=== PATIENT | female | born 1945 | race American Indian/Alaskan Native ===

== ENCOUNTER 2017-06-28 13:27 | Emergency (ER) | payer MEDICARE, OTHER ==
[2017-06-28 13:34] VITALS: O2SAT 96
[2017-06-28] MEDS ORDERED: Dexamethasone 10 MG in Sodium Chloride 0.9% 50 ML IVPB STA (14:26)
[2017-06-28] MEDS ORDERED: Clindamycin 600mg/50ml NS 600 MG/50 ML BAG IVPB ONE (14:26)
[2017-06-28] MEDS ORDERED: Sodium Chloride 0.9% 1,000 ML IV STA (14:26)
--- NOTE | 2017-06-28 14:36 | ED PDOC ---
HPI: CCC, URI, Sore Throat Time Seen by Provider: 06/28/17 14:17 Chief Complaint (Nursing): ENT Problem Chief Complaint (Provider): Sore throat History Per: Patient History/Exam Limitations: no limitations Onset/Duration Of Symptoms: Days (x3) Current Symptoms Are (Timing): Still Present Location Of Pain: Throat Associated Symptoms: Sore Throat (difficulty swallowing ) Additional History Per: Patient Additional Complaint(s): A 71 year old female patient is presenting to the Emergency Department with a sore throat for three days. Patient was seen at urgent care yesterday, 06/27/17 and started on Amoxil. Now she complains of worsening pain and has difficulty swallowing. Patient states she cannot swallow her saliva. Denies any shortness of breath or fever. PMD: Non [facility] Provider Past Medical History Reviewed: Historical Data, Nursing Documentation, Vital Signs Vital Signs: Last Vital Signs Temp 98.2 F 06/28/17 19:10 Pulse 78 06/28/17 19:10 Resp 18 06/28/17 19:10 BP 140/78 06/28/17 19:10 Pulse Ox 96 06/28/17 20:23 - Medical History PMH: Diabetes, HTN - Family History Family History: States: Unknown Family Hx - Home Medications Home Medications: Ambulatory Orders Medication Instructions Recorded Amoxicillin/Clavulanate [Augmentin 10 ml PO BID 7 Days ml 06/28/17 400-57] PrednisoLONE [PrednisoLONE Oral 30 mg PO BID #10 dose 06/28/17 Syrup] - Allergies Allergies/Adverse Reactions: Allergies Allergy/AdvReac Type Severity Reaction Status Date / Time doxycycline [From Vibramycin] AdvReac HEADACHE Verified 06/28/17 13:41 meperidine [From Demerol] AdvReac SWELLING Verified 06/28/17 13:41 metronidazole [From Flagyl] AdvReac HEADACHE Verified 06/28/17 13:41 promethazine [From Phenergan] AdvReac HEADACHE Verified 06/28/17 13:41 Review of Systems ROS Statement: Except As Marked, All Systems Reviewed And Found Negative Constitutional: Negative for: Fever ENT: Positive for: Throat Pain Respiratory: Negative for: Shortness of Breath Physical Exam - Reviewed Nursing Documentation Reviewed: Yes Vital Signs Reviewed: Yes - Physical Exam Appears: Positive for: Non-toxic, No Acute Distress Head Exam: Positive for: ATRAUMATIC, NORMAL INSPECTION, NORMOCEPHALIC Skin: Positive for: Normal Color, Warm, Dry Eye Exam: Positive for: Normal appearance, EOMI, PERRL ENT: Positive for: Pharyngeal Erythema (and swelling to posterior pharynx. Unable to determine if abscess is present.), Other (Mildly muffled voice. Also no trismus or no drooling) Neck: Positive for: Normal, Supple (with no mass) Cardiovascular/Chest: Positive for: Regular Rate, Rhythm. Negative for: Murmur Respiratory: Positive for: Normal Breath Sounds (Lungs clear bilaterally). Negative for: Accessory Muscle Use, Respiratory Distress Neurologic/Psych: Positive for: Alert, Oriented (x3) - Laboratory Results Result Diagrams: 06/28/17 16:30 06/28/17 16:30 - ECG O2 Sat by Pulse Oximetry: 96 (RA) Pulse Ox Interpretation: Normal Medical Decision Making Medical Decision Making: Time: 14:26 Initial Plan: --CT neck --Clindamycin 600mg in 50ml IVPB ONCE --Decadron Inj 10mg IV --Sodium Chloride IV 1,000ml 100 mls/hr --Reevaluation Time: 14:55 --Blood Culture --CBC --CMP --VBG Shock Panel Time: 15:00 Patient will be signed out to Dr. Edna Gibbs. Patient is still pending CT and reevaluation. Scribe Attestation: Documented by Samuel Chambers, acting as a scribe for Ronak Abernathy MD Provider Scribe Attestation: All medical record entries made by the Scribe were at my direction and personally dictated by me. I have reviewed the chart and agree that the record accurately reflects my personal performance of the history, physical exam, medical decision making, and the department course for this patient. I have also personally directed, reviewed, and agree with the discharge instructions and disposition. Disposition - Clinical Impression Clinical Impression: Throat pain - Patient ED Disposition Is Patient to be Admitted: Transfer of Care - Disposition Referrals: [facility] [Outside] [facility] [Outside] Disposition: Transfer of Care Disposition Time: 15:00 Condition: IMPROVED Additional Instructions: FOLLOW UP WITH YOUR DOCTOR OR [facility] IN 24-48 HOURS FOR REEVALUATION Prescriptions: Amoxicillin/Clavulanate [Augmentin 400-57] 10 ml PO BID 7 Days ml PrednisoLONE [PrednisoLONE Oral Syrup] 30 mg PO BID #10 dose Instructions: Pharyngitis (ED) Forms: [employer] (Wol[place]) Patient Signed Over To: Edna Gibbs (Pending CT and reevaluation)
--- NOTE | 2017-06-28 15:09 | ED PDOC ---
- Laboratory Results Result Diagrams: 06/28/17 16:30 06/28/17 16:30 - ECG O2 Sat by Pulse Oximetry: 96 (RA) Medical Decision Making Medical Decision Making: Time: 15:00 --Received endorsement from Dr. Abernathy pending work-up, reassessment, and final ER disposition Patient Name: SHARON SANDERSON (Age): 1945 71 Gender: F Date of Exam: 06/28/2017 Referring Physician: Ronak Abernathy # of Images: [phone] Ordered As: CT NECK SOFT TISSUE W CONTRAST Page 1 of 2 EXAM: CT Neck With Intravenous Contrast EXAM DATE/TIME: 06/28/2017 2:26 PM CLINICAL HISTORY: 71 years old, female; Signs and symptoms; Other: Unable to swallow; Additional info: R/O peritonsilar abscess TECHNIQUE: Axial computed tomography images of the neck with intravenous contrast. All CT scans at this facility use one or more dose reduction techniques, viz.: automated exposure control; ma/kV adjustment per patient size (including targeted exams where dose is matched to indication; i.e. head); or iterative reconstruction technique. Coronal and sagittal reformatted images were created and reviewed. CONTRAST: 90 mL of omnipaque 300 administered intravenously. COMPARISON: There are no prior studies for comparison. FINDINGS: Limitations: There is streak artifact from dental fillings Brain: No acute abnormalities are seen in visualized portion of the brain. Sinuses: There is partial opacification of the left sphenoid sinus Ears and mastoids: Middle ears and mastoids are unremarkable Orbits: Orbital contents are unremarkable. Tonsils and adenoids: Tonsils and adenoids are unremarkable. There is no tonsillar abscess. Deep facial spaces: Parapharyngeal spaces are symmetric. There are no facial masses. Retropharyngeal soft tissues are unremarkable. Prevertebral soft tissues are unremarkable. Salivary glands: Parotid and submandibular glands are unremarkable. Airway: Airway is unremarkable Esophagus: Cervical esophagus is not optimally evaluated. There is a small amount of air in the cervical esophagus. Thyroid: Thyroid is unremarkable. Vascular: Vascular structures are unremarkable. Nodes: There are mildly rounded cervical nodes bilaterally. Lung apices: Motion limits evaluation of the lung apices apices. There are asymmetric groundglass opacities. Bony structures: There degenerative changes in the cervical spine. IMPRESSION: No tonsillar or peritonsillar abscess; sphenoid sinus disease shotty cervical adenopathy Additional nonemergent findings as described above. Thank you for allowing us to participate in the care of your patient. Dictated and Authenticated by: Kami Hester MD 06/28/2017 6:50 PM Eastern Time ([place] & [place]) Labs reviewed, and are grossly normal. DW pt findings. She continues to have discomfort in throat. Viscous lidocaine ordered. 8p Pt tolerated PO lidocaine and water. Requesting her antibiotics to be changed to liquid form. Advised f/u with PMD or via [facility] for reevaluation. Scribe Attestation: Documented by Derrell Cabello & Lissette Amador, acting as scribes for Edna Gibbs MD. Provider Scribe Attestation: All medical record entries made by the Scribe were at my direction and personally dictated by me. I have reviewed the chart and agree that the record accurately reflects my personal performance of the history, physical exam, medical decision making, and the department course for this patient. I have also personally directed, reviewed, and agree with the discharge instructions and disposition. Disposition - Clinical Impression Clinical Impression: Throat pain - POA Present On Arrival: None - Disposition Referrals: [facility] [Outside] [facility] [Outside] Disposition: Routine/Home Disposition Time: 20:00 Condition: IMPROVED Additional Instructions: FOLLOW UP WITH YOUR DOCTOR OR [facility] IN 24-48 HOURS FOR REEVALUATION Prescriptions: Amoxicillin/Clavulanate [Augmentin 400-57] 10 ml PO BID 7 Days ml PrednisoLONE [PrednisoLONE Oral Syrup] 30 mg PO BID #10 dose Instructions: Pharyngitis (ED) Forms: [facility] (Korean)
[2017-06-28 16:52] LABS: ALB/GLOB RATIO 1.2 (1.0-2.1); ALBUMIN 4.3 g/dL (3.5-5.0); ALT/SGPT 32 U/L (9-52); AST/SGOT 29 U/L (14-36); BLOOD UREA NITROGEN 12 mg/dl (7-17); CALCIUM 9.5 mg/dL (8.4-10.2); GFR AFRICAN-AMERICAN > 60; GFR NON-AFRICAN AMERICAN > 60
[2017-06-28] MEDS ORDERED: Iohexol 300 100 ML IJ ONE (17:51)
[2017-06-28] MEDS ORDERED: Sodium Chloride 0.9% 50 ML IV ONE (17:51)
[2017-06-28 18:23] LABS: BASO % 0.2 % (0.0-2.0); EOS # 0.2 K/uL (0.0-0.7); EOS % 2.1 % (0.0-4.0); HEMOGLOBIN 13.3 g/dL (12.0-16.0); LYMPH # 1.2 K/uL (1.0-4.3); LYMPH % 13.9 % (20.0-40.0); MEAN CELL VOLUME 86.3 fl (81.0-99.0); MEAN CORPUSCULAR HGB CONC 33.6 g/dL (33.0-37.0); MEAN PLATELET VOLUME 8.1 fl (7.2-11.7); MONO # 0.6 K/uL (0.0-0.8); MONO % 6.7 % (0.0-10.0); NEUT # 6.5 K/uL (1.8-7.0); NEUT % 77.1 % (50.0-75.0); NRBC % 0.1 % (0.0-0.0); RBC 4.6 Mil/uL (3.80-5.20); RED CELL DISTRIBUTION WIDTH 14.2 % (11.5-14.5); WHITE BLOOD COUNT 8.4 K/uL (4.8-10.8)
--- NOTE | 2017-06-28 18:51 | CT ---
EXAM: CT Neck With Intravenous Contrast EXAM DATE/TIME: 06/28/2017 2:26 PM CLINICAL HISTORY: 71 years old, female; Signs and symptoms; Other: Unable to swallow; Additional info: R/O peritonsilar abscess TECHNIQUE: Axial computed tomography images of the neck with intravenous contrast. All CT scans at this facility use one or more dose reduction techniques, viz.: automated exposure control; ma/kV adjustment per patient size (including targeted exams where dose is matched to indication; i.e. head); or iterative reconstruction technique. Coronal and sagittal reformatted images were created and reviewed. CONTRAST: 90 mL of omnipaque 300 administered intravenously. COMPARISON: There are no prior studies for comparison. FINDINGS: Limitations: There is streak artifact from dental fillings Brain: No acute abnormalities are seen in visualized portion of the brain. Sinuses: There is partial opacification of the left sphenoid sinus Ears and mastoids: Middle ears and mastoids are unremarkable Orbits: Orbital contents are unremarkable. Tonsils and adenoids: Tonsils and adenoids are unremarkable. There is no tonsillar abscess. Deep facial spaces: Parapharyngeal spaces are symmetric. There are no facial masses. Retropharyngeal soft tissues are unremarkable. Prevertebral soft tissues are unremarkable. Salivary glands: Parotid and submandibular glands are unremarkable. Airway: Airway is unremarkable Esophagus: Cervical esophagus is not optimally evaluated. There is a small amount of air in the cervical esophagus. Thyroid: Thyroid is unremarkable. Vascular: Vascular structures are unremarkable. Nodes: There are mildly rounded cervical nodes bilaterally. Lung apices: Motion limits evaluation of the lung apices apices. There are asymmetric groundglass opacities. Bony structures: There degenerative changes in the cervical spine. IMPRESSION: No tonsillar or peritonsillar abscess; sphenoid sinus disease shotty cervical adenopathy Additional nonemergent findings as described above.
[2017-06-28 20:36] VITALS: BP 140/78; PULSE 78; RESP 18; TEMP 98.2
== END 2017-06-28 20:36 | disposition home or self-care (01) ==
LOC: H.ER 13:27
DX: J02.9 Acute pharyngitis, unspecified (principal); E11.9 Type 2 diabetes mellitus without complications; I10 Essential (primary) hypertension
CPT/HCPCS: 70491; 80053; 85025; 87040; 96374; 96375; 99283; J1100; J7040; Q9967